=== PATIENT | female | born 1995 | race Native Hawaiian/Other Pacific Islander ===

== ENCOUNTER 2017-11-13 15:04 | Emergency (ER) | payer OTHER ==
[2017-11-13 15:17] VITALS: BP 122/87; PULSE 100; RESP 17; TEMP 98.6; O2SAT 99
--- NOTE | 2017-11-13 15:46 | C.PDOC ---
History Of Present Illness 21-year-old female, presents to the emergency department with complaints of exacerbation of right heel pain after an accident in 2017. Patient is currently complaining of bony discomfort/pain to the heel area. She denies any numbness/ weakness, fever, ankle pain or any other associated symptoms. No other complaints at this time.Pt declined any pain meds. Time Seen by Provider: 11/13/17 15:23 Chief Complaint (Nursing): Lower Extremity Problem/Injury History Per: Patient History/Exam Limitations: no limitations Onset/Duration Of Symptoms: Days Current Symptoms Are (Timing): Still Present Severity: Moderate Past Medical History Reviewed: Historical Data, Nursing Documentation, Vital Signs Vital Signs: Last Vital Signs Temp 98.6 F 11/13/17 15:13 Pulse 100 H 11/13/17 15:13 Resp 17 11/13/17 15:13 BP 122/87 11/13/17 15:13 Pulse Ox 99 11/13/17 16:27 Family History: States: No Known Family Hx - Social History Hx Alcohol Use: No Hx Substance Use: No - Immunization History Hx Tetanus Toxoid Vaccination: (unk) Hx Influenza Vaccination: No Hx Pneumococcal Vaccination: (unk) Review Of Systems Constitutional: Negative for: Fever Gastrointestinal: Negative for: Nausea Musculoskeletal: Positive for: Foot Pain (right heel.) Skin: Negative for: Rash Neurological: Negative for: Weakness, Numbness Physical Exam - Physical Exam Appears: Non-toxic, No Acute Distress Skin: Normal Color, Warm, Dry, No Rash Head: Atraumatic Eye(s): bilateral: Normal Inspection Nose: Normal Oral Mucosa: Moist Lips: Normal Appearing Neck: Normal ROM Respiratory: No Accessory Muscle Use (no acute respiratory distress) Extremity: No Deformity, Other (Minimal tenderness to palpation of right heel.) Neurological/Psych: Oriented x3, Normal Speech ED Course And Treatment O2 Sat by Pulse Oximetry: 99 (RA) Pulse Ox Interpretation: Normal - Other Rad XR R HEEL X-Ray: Interpreted by Me (Prelim: Negative for fraxture or dislocation), Viewed By Me Interpretation: no fx or dislocation Medical Decision Making Medical Decision Making: Plan: * XR: R Heel * Reassess and Disposition Pt states she has a Hx of irregular menses and has never had sexual intercourse. Disposition Counseled Patient/Family Regarding: Studies Performed, Diagnosis, Need For Followup - Disposition Referrals: Ad Singleton MD [Staff Provider] - Disposition: HOME/ ROUTINE Disposition Time: 16:17 Condition: STABLE Additional Instructions: FOLLOW UP WITH ORTHOPEDIST NEXT WEEK FOR FURTHER EVALUATION OF HEEL PAIN. IF SYMPTOMS GET WORSE OR ANY NEW CONCERNING SYMPTOMS DEVELOP RETURN TO ED. Instructions: Muscle and Bone Pain (DC) Forms: [employer] (Yakut), General Discharge Instructions - Clinical Impression Clinical Impression: Heel pain - Scribe Statement The provider has reviewed the documentation as recorded by the Scribe (Edward Singleton) All medical record entries made by the Scribe were at my direction and personally dictated by me. I have reviewed the chart and agree that the record accurately reflects my personal performance of the history, physical exam, medical decision making, and the department course for this patient. I have also personally directed, reviewed, and agree with the discharge instructions and disposition.
--- NOTE | 2017-11-13 16:51 | RAD ---
Right heel two views History: Pain. Comparison: None available. Findings: No evidence for acute displaced fracture or dislocation. Impression: Negative acute. If pain persists, consider MRI.
== END 2017-11-13 16:23 | disposition home or self-care (01) ==
LOC: C.ER 15:04
DX: M79.671 Pain in right foot (principal)